=== PATIENT | male | born 1985 | race Caucasian/White ===

== ENCOUNTER 2018-01-09 14:34 | Emergency (ER) | payer SELFPAY ==
[2018-01-09] MEDS ORDERED: Ibuprofen TAB* 600 MG PO ONE (14:48)
[2018-01-09 14:49] VITALS: BP 131/73
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
== END 2018-01-09 15:40 | disposition home or self-care (01) ==
LOC: UCEAST 14:34
DX: S21.23 Puncture wound without foreign body of back wall of thorax without penetration into thoracic cavity (principal); S21.131D Puncture wound without foreign body of right front wall of thorax without penetration into thoracic cavity, subsequent encounter; S51.831D Puncture wound without foreign body of right forearm, subsequent encounter; S60.221D Contusion of right hand, subsequent encounter; W45.8XXD Other foreign body or object entering through skin, subsequent encounter; F17.200 Nicotine dependence, unspecified, uncomplicated
CPT/HCPCS: 99203; A9270-GY; G0463